=== PATIENT | female | born 1965 | race Asian ===

== ENCOUNTER 2019-01-04 04:42 | Emergency (ER) | payer OTHER ==
[~2019-01-04] VITALS: Ht 162.6 cm; Wt 72.6 kg
[2019-01-04 04:51] VITALS: BP_SYST 166
--- NOTE | 2019-01-04 04:51 | NUR ---
Patient to ER bed 3 to gown for evaluation. Side rails up.
--- NOTE | 2019-01-04 05:05 | NUR ---
ER Sing at bedside for medical evaluation.
[2019-01-04] MEDS ORDERED: NACL 0.9% 1,000 ML IV ONE (05:15)
[2019-01-04] MEDS ORDERED: MORPHINE 2 MG/ML INJ. SYRINGE IVP ONE (05:15)
[2019-01-04] MEDS ORDERED: ONDANSETRON HCL 4 MG/2 ML VIAL IVP ONE (05:15)
[2019-01-04 05:26] LABS: BASOPHILS % (AUTO) 0.4 % (0.0-2.0); EOSINOPHILS % (AUTO) 0.2 % (0.0-4.0); HEMATOCRIT 42.2 % (36-48); HEMOGLOBIN 14.7 g/dL (12.0-16.0); LYMPHOCYTES # (AUTO) 1.8 K/uL (1.0-5.5); LYMPHOCYTES % (AUTO) 19.5 % (20.5-51.5); MEAN CORPUSCULAR HEMOGLOBIN 33 pg (27-31); MEAN CORPUSCULAR HGB CONC 35 % (32-36); MEAN CORPUSCULAR VOLUME 94 fL (79.0-98.0); MONOCYTES # (AUTO) 0.5 K/uL (0.0-1.0); MONOCYTES % (AUTO) 5.1 % (1.7-9.3); NEUTROPHILS # (AUTO) 6.8 K/uL (1.8-7.7); NEUTROPHILS % (AUTO) 74.8 % (40.0-70.0); PLATELET COUNT (AUTO) 242 K/uL (130-430); RED BLOOD CELL COUNT(AUTO) 4.48 MIL/uL (4.2-6.2); RED CELL DISTRIBUTION WIDTH 12.2 % (9.0-15.0); WHITE BLOOD COUNT (AUTO) 9.1 K/uL (4.8-10.8)
[2019-01-04 05:31] LABS: CALCIUM 9.9 mg/dL (8.4-11.0); CREATININE 0.89 mg/dL (0.55-1.30); POTASSIUM 3.7 mmol/L (3.5-5.1)
[2019-01-04 05:36] LABS: ALBUMIN 4.4 g/dL (3.4-4.8); TOTAL BILIRUBIN 1.1 mg/dL (0.0-1.0)
--- NOTE | 2019-01-04 05:53 | NUR ---
patient went to radiology in stable condition.
[2019-01-04 06:22] LABS: BILIRUBIN,URINE NEGATIVE (NEGATIVE); BLOOD, URINE 3+ (NEGATIVE); CLARITY/URINE CLEAR (CLEAR); COLOR,URINE YELLOW (YELLOW); GLUCOSE,URINE NEGATIVE (NEGATIVE); KETONES,URINE NEGATIVE (NEGATIVE); LEUKOCYTE ESTERASE ,URINE NEGATIVE (NEGATIVE); NITRITE, URINE NEGATIVE (NEGATIVE); PROTEIN URINE NEGATIVE (NEGATIVE); UROBILINOGEN,URINE 0.2 (0.2-1.0)
[2019-01-04 06:29] LABS: BACTERIA,URINE FEW /HPF (None Seen); CALCIUM OXALATE CRYSTALS,UR 0-10 /HPF (None Seen); MUCUS,URINE 1+ /LPF (None Seen); WBC,URINE 0-3 /HPF (0-3)
[2019-01-04] MEDS ORDERED: KETOROLAC TROMETHAMINE 30 MG VIAL IVP ONE (07:00)
--- NOTE | 2019-01-04 07:21 | NUR ---
Patient given written and verbal discharge instructions and verbalizes understanding. ER MD discussed with patient the results and treatment provided. Patient in stable condition. ID arm band removed. IV catheter removed intact and dressing applied, no active bleeding. Rx of flomax, motrin, and norco given. Patient educated on pain management and to follow up with PMD. Pain Scale 0/10. Opportunity for questions provided and answered. Medication side effect fact sheet provided.
[2019-01-04 07:23] VITALS: BP_SYST 125
== END 2019-01-04 07:21 | disposition home or self-care (01) ==
LOC: SED 04:42
DX: N20.0 Calculus of kidney (principal); I10 Essential (primary) hypertension
CPT/HCPCS: 36415; 74176; 80053; 81000; 83690; 85025; 96374; 96375; 99284; J2270; J2405; J7030; J1885

== ENCOUNTER 2019-12-04 01:43 | Inpatient (IN) | payer BC, SELFPAY ==
[~2019-12-04] VITALS: Ht 162.6 cm; Wt 75.3 kg
[2019-12-04 01:50] VITALS: BP_SYST 141
--- NOTE | 2019-12-04 02:00 | NUR ---
Patient to ER bed 5 to gown for evaluation. Side rails up. Report given to DEAN DURHAM.
--- NOTE | 2019-12-04 02:05 | NUR ---
# 20 gauge angiocath placed to RT AC. Use of asceptic technique. Opsite placed over site. Blood return noted. Blood for lab drawn from site. Flushed with 10 cc of normal saline. No evidence of infiltration noted. Patient tolerated well.
--- NOTE | 2019-12-04 02:08 | NUR ---
Oliver brady in [facility] - 12/04/19 at 0214 by [email or web address] GLENN Linares at bedside examining patient.
[2019-12-04] MEDS ORDERED: NACL 0.9% 1,000 ML IV ONE (02:09)
--- NOTE | 2019-12-04 02:10 | NUR ---
Patient is AOx4 complaining of left flank pain non radiating worsening x 4 hours. Pain 10/10. Patient's daughter at bedside translating for patient only speaks mandarin. Patient has history of kidney stones 1 year ago with similar pain. Denies any nausea, vomiting or diarrhea. No other complaints/injuries per patient or as noted. Will continue to monitor.
--- NOTE | 2019-12-04 02:11 | NUR ---
Urine specimen collected and sent to lab for UA.
--- NOTE | 2019-12-04 02:12 | NUR ---
ER at bedside examining patient.
--- NOTE | 2019-12-04 02:13 | NUR ---
Urine HCG done, results NEGATIVE.
[2019-12-04] MEDS ORDERED: KETOROLAC TROMETHAMINE 30 MG VIAL IVP ONE (02:15)
--- NOTE | 2019-12-04 02:20 | NUR ---
Medicated per MD orders. IVF infusing with no s/s of infiltration at this time. Will cont to monitor
[2019-12-04 02:28] LABS: CREATININE 0.8 mg/dL (0.55-1.30)
[2019-12-04] MEDS ORDERED: ONDANSETRON HCL 4 MG/2 ML VIAL IVP ONE (02:30)
[2019-12-04 02:33] LABS: BASOPHILS % (AUTO) 0.5 % (0.0-2.0); EOSINOPHILS # (AUTO) 0.1 K/uL (0.0-0.4); EOSINOPHILS % (AUTO) 1.1 % (0.0-4.0); HEMATOCRIT 41.2 % (36-48); HEMOGLOBIN 13.9 g/dL (12.0-16.0); LYMPHOCYTES # (AUTO) 2.8 K/uL (1.0-5.5); LYMPHOCYTES % (AUTO) 30.6 % (20.5-51.5); MEAN CORPUSCULAR HEMOGLOBIN 32 pg (27-31); MEAN CORPUSCULAR HGB CONC 34 % (32-36); MEAN CORPUSCULAR VOLUME 94 fL (79.0-98.0); MONOCYTES # (AUTO) 0.8 K/uL (0.0-1.0); MONOCYTES % (AUTO) 8.7 % (1.7-9.3); NEUTROPHILS # (AUTO) 5.3 K/uL (1.8-7.7); NEUTROPHILS % (AUTO) 59.1 % (40.0-70.0); PLATELET COUNT (AUTO) 260 K/uL (130-430); RED BLOOD CELL COUNT(AUTO) 4.36 MIL/uL (4.2-6.2)
[2019-12-04 02:34] LABS: ALBUMIN 3.9 g/dL (3.4-4.8); TOTAL BILIRUBIN 1.3 mg/dL (0.0-1.0)
[2019-12-04 02:39] LABS: PROTHROMBIN TIME 9.6 SECS (9.5-12.5)
[2019-12-04 02:42] LABS: BILIRUBIN,URINE NEGATIVE (NEGATIVE); BLOOD, URINE 3+ (NEGATIVE); COLOR,URINE YELLOW (YELLOW); GLUCOSE,URINE NEGATIVE (NEGATIVE); KETONES,URINE NEGATIVE (NEGATIVE); LEUKOCYTE ESTERASE ,URINE 1+ (NEGATIVE); NITRITE, URINE NEGATIVE (NEGATIVE); PROTEIN URINE NEGATIVE (NEGATIVE); UROBILINOGEN,URINE 0.2 (0.2-1.0)
[2019-12-04 02:43] LABS: CLARITY/URINE SLIGHTLY HAZY (CLEAR)
[2019-12-04 02:50] LABS: BACTERIA,URINE FEW /HPF (None Seen); RBC,URINE 20-50 /HPF (0-3)
[2019-12-04] MEDS ORDERED: cefTRIAXone 1 GM in D5W 50 ML IV ONE (03:00)
[2019-12-04] MEDS ORDERED: cefTRIAXone 1 GM VIAL ONE (03:23)
--- NOTE | 2019-12-04 03:27 | NUR ---
ER at bedside discussing CT scan.
--- NOTE | 2019-12-04 03:30 | NUR ---
Patient's daughter reports she takes no medication daily
--- NOTE | 2019-12-04 03:31 | NUR ---
PAtient states she is a full code
[2019-12-04] MEDS ORDERED: TAMSULOSIN HCL 0.4 MG CAP PO ONE (03:45)
--- NOTE | 2019-12-04 04:07 | NUR ---
Patient will be admitted to care of Dr. Montoya. Admitted to Telemetry unit. Will go to room 102A. Complete and up to date summary report printed. SBAR report to be given at bedside with opportunity for questions.
--- NOTE | 2019-12-04 04:18 | NUR ---
ADMIT NOTE Received pt from ER to the floor with a diagnosis of left sided kidney obstruction. Admission process initiated. patient oriented to pain management, safety and call light-teach back done.
[2019-12-04 04:40] VITALS: BP_SYST 132
--- NOTE | 2019-12-04 06:37 | NUR ---
CLOSING NOTES Patient is resting, eyes closed. IV site patent, dressings c/d/i. Call light within reach, bed alarm off, patient demonstrates proper usage of call light. Bed at lowest position. All needs met throughout shift. Will endorse care to oncoming shift.
[2019-12-04 08:00] VITALS: BP_SYST 124
--- NOTE | 2019-12-04 08:00 | NUR ---
patient is resting; A/Ox4, Mandarin speaking. IV on left AC, #20, SL. Instructed on POC. Call light in place, bed locked at the lowest position, will continue to monitor.
[2019-12-04] MEDS ORDERED: DOCUSATE SODIUM 100 MG/10 ML UDC PO PRN (08:15)
[2019-12-04] MEDS ORDERED: ZOLPIDEM TARTRATE 5 MG TABLET PO PRN (08:15)
[2019-12-04] MEDS ORDERED: ONDANSETRON HCL 4 MG/2 ML VIAL IVP PRN (08:15)
[2019-12-04] MEDS ORDERED: ACETAMINOPHEN 500 MG TABLET PO PRN (08:15)
--- NOTE | 2019-12-04 09:38 | NUR ---
CONSULTATION PAGED REASON FOR CONSULTATION:LEFT SIDED KIDNEY OBSTRUCTION WAS CONSULT CALLED?Y PERSON WHO WAS NOTIFIED:EDY SHIN CONSULTING PHYSICIAN:EDY SHIN DIRECTOR [facility] SPECIALTY:UROLOGY DIRECTOR [facility] PHONE NUMBER:[phone] REQUESTING PHYSICIAN:KAY DOMINGUEZ
[2019-12-04] MEDS: PANTOPRAZOLE SODIUM 40 MG TAB PO SCH (09:50)
--- NOTE | 2019-12-04 10:08 | NUR ---
Dr. Scott, the urologist, is at bedside and assessing patients.
[2019-12-04 11:33] LABS: INR 0.9 (0.8-1.2); PROTHROMBIN TIME 9.5 SECS (9.5-12.5)
[2019-12-04 12:00] VITALS: BP_SYST 119
--- NOTE | 2019-12-04 12:30 | NUR ---
Patient is having lunch, no signs of distress noted.
[2019-12-04] MEDS: NACL 0.9% 1,000 ML IV SCH ×2 (13:08→23:16)
[2019-12-04 13:43] LABS: CALCIUM 9.4 mg/dL (8.4-11.0); CREATININE 0.74 mg/dL (0.55-1.30); FREE T4 (FREE THYROXINE) 1.1 ng/dl (0.8-1.5); PHOSPHORUS 4.1 mg/dL (2.7-4.5); THYROID STIMULATING HORMONE 1.82 uIu/mL (0.36-3.74)
--- NOTE | 2019-12-04 14:38 | NUR ---
Patient is resting, no signs of distress noted.
--- NOTE | 2019-12-04 16:08 | NUR ---
patient is sleeping. Declines v/s to be measured at this time.
[2019-12-04 17:08] LABS: BARBITURATE, URINE NEGATIVE (NEG <=200); BENZODIAZEPINE, URINE NEGATIVE (NEG <=150); CANNABINOID, URINE NEGATIVE (NEG <=50); COCAINE, URINE NEGATIVE (NEG <=150); METHAMPHETAMINES SCREEN,URINE NEGATIVE (NEG <=500); OPIATE, URINE NEGATIVE (NEG <=100); PHENCYCLIDINE SCREEN,URINE NEGATIVE (NEG <=25); URINE AMPHETAMINE NEGATIVE (NEG <=500); URINE METHADONE NEGATIVE (NEG <=200); URINE OXYCODONE SCREEN NEGATIVE (NEG <=100); URINE PROPOXYPHENE SCREEN NEGATIVE (NEG <=300)
[2019-12-04 17:09] LABS: UR TRICYCLIC ANTIDEPRESSANTS NEGATIVE (NEG <=300)
--- NOTE | 2019-12-04 18:20 | NUR ---
PATIENT HAS DINNER. CONTENTS OF THE IMPENDING PROCEDURE IS REVIEWED, AND SHE SIGNED THE CONSENT FOR THE PROCEDURE.
--- NOTE | 2019-12-04 19:05 | NUR ---
OPENING NOTES Received patient resting, no signs of distress observed. Received report that patient had spoken to Dr. Scott in Mandarin. Patient to have a ureteroscopy on Thursday, consent has been signed. IV site patent, dressings c/d/i, IVF running. Call light within reach, bed alarm refused as patient demonstrates proper usage of call light. Bed at lowest position. Will continue to monitor.
[2019-12-04 20:00] VITALS: BP_SYST 125
--- NOTE | 2019-12-04 21:50 | NUR ---
Patient is resting on the side, on the cell phone. Patient states no pain at this time per FLACC scale. Will continue to monitor.
[2019-12-04] MEDS: cefTRIAXone 1 GM in D5W 50 ML IV SCH (23:16)
[2019-12-05 00:55] VITALS: BP_SYST 129
--- NOTE | 2019-12-05 02:44 | NUR ---
Patient is resting, eyes closed. Call light within reach. Will continue to monitor.
--- NOTE | 2019-12-05 06:38 | NUR ---
CLOSING NOTES Patient is resting comfortably, rise and fall of chest noted. No signs of distress noted. IV site patent, dressings c/d/i. Call light within reach, bed alarm refused after proper use of call light usage demonstrated. Bed at lowest position. All needs met throughout shift. Will endorse care to oncoming shift.
[2019-12-05 08:00] VITALS: BP_SYST 146
--- NOTE | 2019-12-05 08:00 | NUR ---
PT IN BED, AWAKEN FOR VITALS, PT DENIES PAIN, NO SOB, NO FEVER. IV FLUIDS INFUSING WELL.
[2019-12-05] MEDS: PANTOPRAZOLE SODIUM 40 MG TAB PO SCH (08:54)
[2019-12-05] MEDS: TAMSULOSIN HCL 0.4 MG CAP PO SCH (08:54)
[2019-12-05] MEDS ORDERED: POTASSIUM CHLORIDE 20 MEQ TAB.PRT.SR PO PRN (09:00)
[2019-12-05 09:48] LABS: CALCIUM 9.1 mg/dL (8.4-11.0); CREATININE 0.81 mg/dL (0.55-1.30); POTASSIUM 3.9 mmol/L (3.5-5.1)
[2019-12-05 10:19] LABS: BASOPHILS % (AUTO) 0.8 % (0.0-2.0); EOSINOPHILS # (AUTO) 0.1 K/uL (0.0-0.4); EOSINOPHILS % (AUTO) 1.5 % (0.0-4.0); HEMATOCRIT 36.1 % (36-48); HEMOGLOBIN 12.2 g/dL (12.0-16.0); LYMPHOCYTES # (AUTO) 1.7 K/uL (1.0-5.5); LYMPHOCYTES % (AUTO) 36.8 % (20.5-51.5); MEAN CORPUSCULAR HEMOGLOBIN 32 pg (27-31); MEAN CORPUSCULAR HGB CONC 34 % (32-36); MEAN CORPUSCULAR VOLUME 96 fL (79.0-98.0); MONOCYTES # (AUTO) 0.4 K/uL (0.0-1.0); MONOCYTES % (AUTO) 9.1 % (1.7-9.3); NEUTROPHILS # (AUTO) 2.5 K/uL (1.8-7.7); NEUTROPHILS % (AUTO) 51.8 % (40.0-70.0); PLATELET COUNT (AUTO) 206 K/uL (130-430); RED BLOOD CELL COUNT(AUTO) 3.77 MIL/uL (4.2-6.2); RED CELL DISTRIBUTION WIDTH 11.9 % (9.0-15.0); WHITE BLOOD COUNT (AUTO) 4.7 K/uL (4.8-10.8)
--- NOTE | 2019-12-05 10:38 | NUR ---
PT IN BED, NO C/O OF PAIN, ON THE TELEPHONE. REMINDED PT THAT SHE VOID ON THE URINE COLLECTION HAT SO WE CAN STRAIN HER URINE TO CHECK IF SHE IS ABLE TO PASS THE STONE.
[2019-12-05 12:10] VITALS: BP_SYST 134
[2019-12-05] MEDS: NACL 0.9% 1,000 ML IV SCH (12:57)
--- NOTE | 2019-12-05 14:38 | NUR ---
SEEN PT AMBULATING TO BATHROOM, NO SOB, NO PAIN. WILL CONT TO MONITOR.
[2019-12-05 16:13] VITALS: BP_SYST 136
--- NOTE | 2019-12-05 19:37 | NUR ---
PT ENDORSED TO NIGHT NURSE. PT HAS BEEN STABLE, NO C/O OF PAIN, URINE STRAINED BUT NO STONES NOTED. PT WANTED TO TAKE SHOWER. ENDORSED TO NIGHT NURSE.
[2019-12-05 20:00] VITALS: BP_SYST 140
--- NOTE | 2019-12-05 20:00 | NUR ---
OPENING NOTE PT IS ALERT AND ORIENTED X4. STABLE VITAL SIGNS. NO PAIN REPORTED. SHIFT'S PRIORITY IS TO KEEP PT ON NPO AFTER 0700, DO CONSENT FOR URETERSCOPY AND LITHOTRIPSY WITH LASER, GIVE ANTIBIOTIC, AND MANAGE PAIN, BED IN LOW AND CALL LIGHT IN REACH.
[2019-12-06] MEDS: cefTRIAXone 1 GM in D5W 50 ML IV SCH (00:07)
--- NOTE | 2019-12-06 03:40 | NUR ---
MIDNIGHT NOTE PT IS SLEEPING. EVEN AND NONLABORED BREATHING. ROCEPHIN RUNNING AT 100 ML/HR. BED IN LOW AND CALL LIGHT IN REACH.
[2019-12-06] MEDS: NACL 0.9% 1,000 ML IV SCH (03:48)
--- NOTE | 2019-12-06 06:56 | NUR ---
CLOSING NOTE PT IS AWAKE AND ALERT NS RUNNING AT 75 ML/HR UNDERSTAND ABOUT SURGERY CONSENT PACKET NEED TO BE COMPLETED. ENDORSE TO THE DAY NURSE
[2019-12-06 08:00] VITALS: BP_SYST 128
--- NOTE | 2019-12-06 08:00 | NUR ---
A/OX4,AFEBRILE,VSS,DENIES PAIN OR DISCOMFORT,NEEDS ATTENDED,CALL LIGHT & PERSONAL ITEMS WITHIN PT REACH SAFETY MAINTAINED.CONTINUE TO MONITOR PT.
--- NOTE | 2019-12-06 10:00 | NUR ---
PT AMBULATORY TO BATHROOM,IVF CONTINUE INFUSING,KEEP NPO FOR ONCOMING SURGERY OF CYSTOSCOPY.
[2019-12-06 10:38] LABS: BASOPHILS % (AUTO) 0.5 % (0.0-2.0); EOSINOPHILS # (AUTO) 0.1 K/uL (0.0-0.4); EOSINOPHILS % (AUTO) 1.6 % (0.0-4.0); HEMATOCRIT 35.8 % (36-48); HEMOGLOBIN 12.1 g/dL (12.0-16.0); LYMPHOCYTES # (AUTO) 1.9 K/uL (1.0-5.5); LYMPHOCYTES % (AUTO) 37.9 % (20.5-51.5); MEAN CORPUSCULAR HEMOGLOBIN 32 pg (27-31); MEAN CORPUSCULAR HGB CONC 34 % (32-36); MEAN CORPUSCULAR VOLUME 95 fL (79.0-98.0); MONOCYTES # (AUTO) 0.5 K/uL (0.0-1.0); MONOCYTES % (AUTO) 9.3 % (1.7-9.3); NEUTROPHILS # (AUTO) 2.5 K/uL (1.8-7.7); NEUTROPHILS % (AUTO) 50.7 % (40.0-70.0); PLATELET COUNT (AUTO) 207 K/uL (130-430); RED BLOOD CELL COUNT(AUTO) 3.78 MIL/uL (4.2-6.2); RED CELL DISTRIBUTION WIDTH 11.7 % (9.0-15.0)
[2019-12-06 10:51] LABS: CREATININE 0.62 mg/dL (0.55-1.30); POTASSIUM 3.5 mmol/L (3.5-5.1)
--- NOTE | 2019-12-06 12:00 | NUR ---
PT RESTING WELL IN BED,NO SIGNIFICANT CHANGES IN STATUS,HOURLY ROUNDS MADE,SAFETY MAINTAINED.
[2019-12-06 12:06] VITALS: BP_SYST 140
--- NOTE | 2019-12-06 14:41 | NUR ---
ANESTHESIOLOGIST CAME AND INTERVIEWED PT WITH TRANSLATION IN MANDARIN,BRADYCARDIA HR 57,BP ELEVATED TO140/100 ANESTHESIOLOGIST NOTIFIED AND AWARED,PT GONE OFF THE FLOOR FOR OR VIA BED.
[2019-12-06] MEDS ORDERED: METOCLOPRAMIDE HCL 10 MG/2 ML VIAL IVP ONE (15:07)
[2019-12-06] MEDS ORDERED: SEVOFLURANE 15 MIN GAS INH ONE (15:07)
[2019-12-06] MEDS ORDERED: hydrALAZINE HCL 20 MG/ML VIAL IVP ONE (15:07)
[2019-12-06] MEDS ORDERED: ROCURONIUM BROMIDE 10 MG/ML (ZEMURON) IV ONE (15:07)
[2019-12-06] MEDS ORDERED: cefTRIAXone 1 GM VIAL IV ONE (15:07)
[2019-12-06] MEDS ORDERED: GLYCOPYRROLATE 0.2 MG/ML VIAL IJ ONE (15:07)
[2019-12-06] MEDS ORDERED: DEXAMETHASONE SOD PHOSPHATE 4 MG/ML VIAL IVP ONE (15:07)
[2019-12-06] MEDS ORDERED: PHENYLEPHRINE HCL 10 MG/ML VIAL (NEOSYNEPHRINE) IV ONE (15:07)
[2019-12-06] MEDS ORDERED: KETOROLAC TROMETHAMINE 30 MG VIAL IVP ONE (15:07)
[2019-12-06] MEDS ORDERED: PROPOFOL 200MG/ 20ML VIAL (DIPRIVAN) IV ONE (15:07)
[2019-12-06] MEDS ORDERED: NS 1000 ML IV.SOLN IV ONE (15:07)
[2019-12-06] MEDS ORDERED: ONDANSETRON HCL 4 MG/2 ML VIAL IVP ONE (15:07)
[2019-12-06] MEDS ORDERED: fentaNYL CITRATE/PF 100 MCG/2 ML AMP IVP ONE (15:07)
[2019-12-06] MEDS ORDERED: IOHEXOL 50 ML IV ONE (15:58)
[2019-12-06] MEDS ORDERED: LR 1,000 ML IV SCH (16:55)
[2019-12-06] MEDS ORDERED: KETOROLAC TROMETHAMINE 30 MG VIAL IVP PRN ×3 (17:00)
[2019-12-06] MEDS ORDERED: hydrALAZINE HCL 20 MG/ML VIAL IVP PRN (17:00)
[2019-12-06] MEDS ORDERED: METOCLOPRAMIDE HCL 10 MG/2 ML VIAL IVP PRN (17:00)
[2019-12-06] MEDS ORDERED: HYDROmorphone 1 MG INJ. 1 MG/ML AMPUL IVP PRN ×2 (17:00)
[2019-12-06] MEDS ORDERED: ONDANSETRON HCL 4 MG/2 ML VIAL IVP PRN (17:00)
[2019-12-06] MEDS: TAMSULOSIN HCL 0.4 MG CAP PO SCH (18:11)
[2019-12-06] MEDS: PANTOPRAZOLE SODIUM 40 MG TAB PO SCH (18:12)
--- NOTE | 2019-12-06 18:30 | NUR ---
pt returned to floor from surgery and placed in room 101 B,BP elevated to 162/112,c/o dizzy,assisted pt up and urinated pinkish urine in BSC,hydralazine IV given for HTN,resumed previous diet and meds,continue to monitor pt.
[2019-12-06 18:45] VITALS: BP_SYST 143
[2019-12-06 19:00] VITALS: BP_SYST 129
[2019-12-06 20:00] VITALS: BP_SYST 133
--- NOTE | 2019-12-06 20:04 | NUR ---
Opening note: Received patient from day shift nurse. Nurse ( MARVA Arnold) stated her BP pressure was elevated earlier. Rechecked BP: 133/89 P:89 Sp02: 96% (within normal range) Patient respirations even and unlabored. Denies any pain or discomfort at this time. No apparent distress noted. Safety precautions in place, bed in low position, side rails x2, call light within reach, patient able to call for assistance as needed. Will continue to monitor.
[2019-12-06] MEDS: MORPHINE 2 MG/ML INJ. SYRINGE IVP PRN (21:42)
--- NOTE | 2019-12-06 22:20 | NUR ---
Pain med: Patient reported 8/10 pain on a numeric pain scale. Administered PRN morphine 2mg/mL. Will follow up. Addendum: 12/06/19 at 2309 by [facility] shrink pit supervisor Pain relief Patient stated stated pain 10/04/ BP: 110/89 HR: 79 Sp02: 97% Administered Dwight-5 (PRN) for moderate relief. Patient stated 1/10 pain relief. Will continue to evaluate pain.
[2019-12-06] MEDS: HYDROcodone/ACETAMIN 7.5-325 MG TAB PO PRN (22:34)
[2019-12-06 23:37] VITALS: BP_SYST 129
[2019-12-07] MEDS: cefTRIAXone 1 GM in D5W 50 ML IV SCH (00:37)
[2019-12-07 00:52] VITALS: BP_SYST 113
[2019-12-07] MEDS: MORPHINE 2 MG/ML INJ. SYRINGE IVP PRN ×2 (02:25→06:21)
--- NOTE | 2019-12-07 02:49 | NUR ---
Pain relief Patient stated stated pain 01/04 BP: 120/88, HR: 80, Sp02: 97% . Administered morphine 2 mg/ml. Patient stated 2/10 pain relief. Will continue to evaluate pain.
[2019-12-07] MEDS: HYDROcodone/ACETAMIN 7.5-325 MG TAB PO PRN ×3 (04:57→09:30)
--- NOTE | 2019-12-07 05:31 | NUR ---
Closing note: Patient resting in bed in no apparent distress. Pain meds around the clock effective. Safety precautions in use. Bed in low position, side rails up x2, call light within reach. Will endorse to client about patients continued care.
[2019-12-07 05:39] VITALS: BP_SYST 115
--- NOTE | 2019-12-07 07:48 | NUR ---
Opening Note received bedside SBAR report from maintenance mechanic 2nd shift RN, patient resting in bed, respirations even and unlabored on room air, no acute distress noted, patient reports pain is controlled at this time, rounds with Dr. Laboy, per Dr. Laboy patient should be discharged today, cafeteria aide aware, educated patient on use of call light and asked to call for assistance, patient verbalized understanding, call light in reach, educated patient on use of bed alarm for patient safety, patient refusing bed alarm, bed in low and locked position.
[2019-12-07 08:00] VITALS: BP_SYST 115
[2019-12-07] MEDS: PANTOPRAZOLE SODIUM 40 MG TAB PO SCH (08:50)
[2019-12-07] MEDS: TAMSULOSIN HCL 0.4 MG CAP PO SCH (08:50)
[2019-12-07 09:06] LABS: BASOPHILS % (AUTO) 0.3 % (0.0-2.0); HEMATOCRIT 35.9 % (36-48); HEMOGLOBIN 12.1 g/dL (12.0-16.0); LYMPHOCYTES # (AUTO) 1.7 K/uL (1.0-5.5); LYMPHOCYTES % (AUTO) 25.8 % (20.5-51.5); MEAN CORPUSCULAR HEMOGLOBIN 32 pg (27-31); MEAN CORPUSCULAR HGB CONC 34 % (32-36); MEAN CORPUSCULAR VOLUME 95 fL (79.0-98.0); MONOCYTES # (AUTO) 0.5 K/uL (0.0-1.0); MONOCYTES % (AUTO) 7.6 % (1.7-9.3); NEUTROPHILS # (AUTO) 4.3 K/uL (1.8-7.7); NEUTROPHILS % (AUTO) 66.3 % (40.0-70.0); PLATELET COUNT (AUTO) 232 K/uL (130-430); RED CELL DISTRIBUTION WIDTH 11.9 % (9.0-15.0); WHITE BLOOD COUNT (AUTO) 6.5 K/uL (4.8-10.8)
[2019-12-07 09:35] LABS: CALCIUM 9.4 mg/dL (8.4-11.0); CREATININE 0.73 mg/dL (0.55-1.30); POTASSIUM 3.4 mmol/L (3.5-5.1)
--- NOTE | 2019-12-07 10:15 | NUR ---
RN Rounds patient resting in bed, patient tolerated breakfast well, no acute distress noted, patient reports pain is controlled at this time.
[2019-12-07 11:04] VITALS: BP_SYST 112
[2019-12-07] MEDS ORDERED: IBUP-1969 PO (11:07)
[2019-12-07] MEDS ORDERED: CIPR-211 PO (11:08)
[2019-12-07] MEDS ORDERED: HYDR-4272 PO (11:09)
--- NOTE | 2019-12-07 11:44 | NUR ---
Discharge used Faroese Mandarin technical sales consultant Shauna #[phone] to translate, provided patient with discharge packet and instructions, informed patient to make appointment to see Dr. Scott within one week, patient verbalized understanding, provided patient with written prescriptions, IV catheter removed, catheter intact, no bleeding, steady gait noted, respirations even and unlabored on room air, no acute distress noted, all belongings sent with patient patient taken to parking lot via wheelchair, patient driven by jose elias Gallo for discharge home. Addendum: 12/07/19 at 1158 by Chula Aponte RN also educated patient jose elias Gallo on discharge packet and instructions and medications prescribed for discharge, patients jose elias Gallo verbalized understanding.
== END 2019-12-07 11:58 | disposition home or self-care (01) | DRG 660 ==
LOC: SED 01:43 → STU 03:43 → SMU 21:33
PROVIDERS: ADMIT Family Medicine; ATTEND Family Medicine
PROC: 0TF78ZZ Fragmentation in Left Ureter, Via Natural or Artificial Opening Endoscopic (ICD-10-PCS; 2019-12-06)
PROC: BT1F1ZZ Fluoroscopy of Left Kidney, Ureter and Bladder using Low Osmolar Contrast (ICD-10-PCS; 2019-12-06)
PROC: 0T778DZ Dilation of Left Ureter with Intraluminal Device, Via Natural or Artificial Opening Endoscopic (ICD-10-PCS; principal; 2019-12-06 15:07)
DX: N13.6 Pyonephrosis (principal); R17 Unspecified jaundice; E86.0 Dehydration; I10 Essential (primary) hypertension; Z87.442 Personal history of urinary calculi; Z03.818 Encounter for observation for suspected exposure to other biological agents ruled out
CPT/HCPCS: 36415; 71045; 76000; 80048; 80053; 80061; 80307; 81000-TC; 82150-TC; 83036; 83605; 83690-TC; 83735-TC; 83880; 84100-TC; 84439; 84443-TC; 84484; 85025; 85610-TC; 85730-TC; 87040-TC; 87081; 87086; 93005; 94760; 96361; 96365; 96375; 99285; C1758; C1769; C2625; J0360; J0696; J1100; J1170; J1885; J2270; J2370; J2405; J2704; J2765; J3010; J3490; J7030; J7060; Q9967; U0003-CS

== ENCOUNTER 2021-04-23 13:30 | Emergency (ER) | payer BC, SELFPAY ==
[~2021-04-23] VITALS: Ht 162.6 cm; Wt 72.6 kg
[~2021-04-23 13:30] MED LIST: CIPR500T5 PO; HYDR-4272 PO; IBUP-1969 PO
[2021-04-23 13:51] VITALS: BP_SYST 107
--- NOTE | 2021-04-23 16:50 | NUR ---
First contact made with patient. Minimal report received on patient. Per patient's dtr, patient has had a "cold" for several days, but it "got worse" this morning. PMH HTN reported. Patient's dtr also reported low BP this morning, along with weakness and redness all over body with no allergic reaction reported. Awaiting MD evaluation. Will continue to monitor.
[2021-04-23 17:25] LABS: BASOPHILS % (AUTO) 0.4 % (0.0-2.0); EOSINOPHILS % (AUTO) 0.2 % (0.0-4.0); HEMATOCRIT 38.9 % (36-48); HEMOGLOBIN 13.1 g/dL (12.0-16.0); LYMPHOCYTES # (AUTO) 1.1 K/uL (1.0-5.5); LYMPHOCYTES % (AUTO) 9.5 % (20.5-51.5); MEAN CORPUSCULAR HEMOGLOBIN 31 pg (27-31); MEAN CORPUSCULAR HGB CONC 34 % (32-36); MEAN CORPUSCULAR VOLUME 92 fL (79.0-98.0); MONOCYTES # (AUTO) 0.5 K/uL (0.0-1.0); MONOCYTES % (AUTO) 4.8 % (1.7-9.3); NEUTROPHILS # (AUTO) 9.4 K/uL (1.8-7.7); NEUTROPHILS % (AUTO) 85.1 % (40.0-70.0); PLATELET COUNT (AUTO) 212 K/uL (130-430); RED BLOOD CELL COUNT(AUTO) 4.22 MIL/uL (4.2-6.2); RED CELL DISTRIBUTION WIDTH 11.8 % (9.0-15.0); WHITE BLOOD COUNT (AUTO) 11.1 K/uL (4.8-10.8)
--- NOTE | 2021-04-23 17:25 | NUR ---
Patient transported to CT scan via wheelchair
[2021-04-23 17:37] LABS: CALCIUM 8.8 mg/dL (8.4-11.0); CREATININE 0.75 mg/dL (0.55-1.30); POTASSIUM 4.2 mmol/L (3.5-5.1)
[2021-04-23 17:43] LABS: ALBUMIN 3.8 g/dL (3.4-4.8); TOTAL BILIRUBIN 0.5 mg/dL (0.0-1.0)
[2021-04-23 17:45] LABS: C-REACTIVE PROTEIN QUANT 0.2 mg/dL (0-0.5)
[2021-04-23 18:11] LABS: ERYTHROCYTE SEDIMENTATION RATE 14 MM/HR (0-20)
[2021-04-23] MEDS ORDERED: IBUP-1969 PO (18:57)
[2021-04-23] MEDS ORDERED: cefTRIAXone 1 GM in LIDOCAINE 1%, 20 ML MDV 2.1 ML IM ONE (19:00)
--- NOTE | 2021-04-23 19:25 | NUR ---
ER at bedside to explain results and treatments.
[2021-04-23 19:48] VITALS: BP_SYST 107
--- NOTE | 2021-04-23 19:48 | NUR ---
Patient given written and verbal discharge instructions and verbalizes understanding. ER MD discussed with patient the results and treatment provided. Patient in stable condition. ID arm band removed. Rx of Ibuprofen given. Patient educated on pain management and to follow up with PMD. Pain Scale 1/10. Opportunity for questions provided and answered. Medication side effect fact sheet provided.
[2021-04-24] MEDS ORDERED: PRED20TA PO (18:15)
[2021-04-24] MEDS ORDERED: EPIN0.3P3 IM (18:15)
[2021-04-24] MEDS ORDERED: DIPH25CA83 PO (18:15)
== END 2021-04-23 19:48 | disposition home or self-care (01) ==
LOC: SED 13:30
DX: R51.9 Headache, unspecified (principal); I10 Essential (primary) hypertension; Z79.899 Other long term (current) drug therapy
CPT/HCPCS: 36415; 70450; 76376; 80053; 81025; 85025; 85651; 86140; 93005; 96372; 99285; J0696; J2001

== ENCOUNTER 2021-04-24 13:46 | Emergency (ER) | payer BC, SELFPAY ==
[~2021-04-24] VITALS: Ht 162.6 cm; Wt 72.6 kg
[2021-04-24 14:10] VITALS: BP_SYST 122
--- NOTE | 2021-04-24 14:15 | NUR ---
pt. bib daughter with concerns of JEONG comes and goes accompanied by flushed face and body rash/redness, rates JEONG 3/10 states has had 3 to 4 episodes since last night lasting around 1 hour.
--- NOTE | 2021-04-24 14:30 | NUR ---
ER in triage examining patient.
[2021-04-24 15:24] LABS: BASOPHILS % (AUTO) 0.4 % (0.0-2.0); EOSINOPHILS % (AUTO) 0.8 % (0.0-4.0); HEMATOCRIT 38.7 % (36-48); HEMOGLOBIN 13.3 g/dL (12.0-16.0); LYMPHOCYTES # (AUTO) 1.6 K/uL (1.0-5.5); MEAN CORPUSCULAR HEMOGLOBIN 31 pg (27-31); MEAN CORPUSCULAR HGB CONC 34 % (32-36); MEAN CORPUSCULAR VOLUME 91 fL (79.0-98.0); MONOCYTES # (AUTO) 0.3 K/uL (0.0-1.0); MONOCYTES % (AUTO) 6.9 % (1.7-9.3); NEUTROPHILS # (AUTO) 2.1 K/uL (1.8-7.7); NEUTROPHILS % (AUTO) 51.9 % (40.0-70.0); PLATELET COUNT (AUTO) 215 K/uL (130-430); RED BLOOD CELL COUNT(AUTO) 4.27 MIL/uL (4.2-6.2); RED CELL DISTRIBUTION WIDTH 11.9 % (9.0-15.0)
--- NOTE | 2021-04-24 15:25 | NUR ---
pt. taken from [facility] to triage for covid and strep swab, pt. currently has no JEONG and rash/facial redness gone, pt. does states feels heart beat fast when JEONG starts
[2021-04-24 15:29] LABS: CALCIUM 8.8 mg/dL (8.4-11.0); CREATININE 0.69 mg/dL (0.55-1.30); POTASSIUM 3.7 mmol/L (3.5-5.1)
[2021-04-24 15:38] LABS: TOTAL BILIRUBIN 0.7 mg/dL (0.0-1.0)
[2021-04-24 15:57] LABS: C-REACTIVE PROTEIN QUANT 2.5 mg/dL (0-0.5)
--- NOTE | 2021-04-24 18:10 | NUR ---
BROUGHT INTO [facility] CHAIR BY DR MANUEL.
[2021-04-24] MEDS ORDERED: DIPH25CA83 PO (18:15)
[2021-04-24] MEDS ORDERED: PRED20TA PO (18:15)
[2021-04-24] MEDS ORDERED: EPIN0.3P3 IM (18:15)
--- NOTE | 2021-04-24 18:34 | NUR ---
Patient given written and verbal discharge instructions and verbalizes understanding. ER MD discussed with patient the results and treatment provided. Patient in stable condition. Rx of BENADRYL, EPI,PREDNISONE given. Patient educated on pain management and to follow up with PMD. Pain Scale . Opportunity for questions provided and answered. Medication side effect fact sheet provided.
[2021-04-24 18:35] VITALS: BP_SYST 113
== END 2021-04-24 18:34 | disposition home or self-care (01) ==
LOC: SED 13:46
DX: L23.9 Allergic contact dermatitis, unspecified cause (principal); I10 Essential (primary) hypertension; Z20.822 Contact with and (suspected) exposure to COVID-19
CPT/HCPCS: 36415; 71045; 80053; 85025; 86060; 86140; 86403; 87081; 99284

== ENCOUNTER 2022-06-20 07:10 | Emergency (ER) | payer BC ==
[~2022-06-20] VITALS: Ht 165.1 cm; Wt 72.6 kg
[~2022-06-20 07:10] MED LIST changes: +DIPH25CA83 PO; +EPIN0.3P3 IM; +PRED20TA PO
[2022-06-20 07:33] VITALS: BP_SYST 154
[2022-06-20] MEDS ORDERED: KETOROLAC TROMETHAMINE 30 MG VIAL IVP ONE (07:45)
[2022-06-20] MEDS ORDERED: NACL 0.9% 1,000 ML IV ONE (07:45)
[2022-06-20 08:23] LABS: BASOPHILS % (AUTO) 0.2 % (0.0-2.0); EOSINOPHILS % (AUTO) 0.2 % (0.0-4.0); HEMATOCRIT 38.3 % (36-48); HEMOGLOBIN 13.2 g/dL (12.0-16.0); LYMPHOCYTES # (AUTO) 1.4 K/uL (1.0-5.5); LYMPHOCYTES % (AUTO) 16.5 % (20.5-51.5); MEAN CORPUSCULAR HEMOGLOBIN 32 pg (27-31); MEAN CORPUSCULAR HGB CONC 35 % (32-36); MEAN CORPUSCULAR VOLUME 92 fL (79.0-98.0); MONOCYTES # (AUTO) 0.4 K/uL (0.0-1.0); MONOCYTES % (AUTO) 4.3 % (1.7-9.3); NEUTROPHILS # (AUTO) 6.8 K/uL (1.8-7.7); NEUTROPHILS % (AUTO) 78.8 % (40.0-70.0); PLATELET COUNT (AUTO) 221 K/uL (130-430); RED BLOOD CELL COUNT(AUTO) 4.17 MIL/uL (4.2-6.2); RED CELL DISTRIBUTION WIDTH 12.1 % (9.0-15.0); WHITE BLOOD COUNT (AUTO) 8.7 K/uL (4.8-10.8)
--- NOTE | 2022-06-20 08:30 | NUR ---
PT CAME IN TO ED ACCOMPANIED BY DAUGHTER, CHIEF COMPLAINT OF LEFT FLANK PAIN STARTED TODAY. PAIN GRADIANT 12/04. PT AOX4. PT HAS HX OF KIDNEY STONES AND HTN. PT IN BED AT LOWEST POSITION AND SIDE RAILS UP.
--- NOTE | 2022-06-20 08:32 | NUR ---
ER Dr. PONCE at bedside examining patient.
[2022-06-20 08:38] LABS: CALCIUM 9.2 mg/dL (8.4-11.0); CREATININE 0.94 mg/dL (0.55-1.30)
--- NOTE | 2022-06-20 08:40 | NUR ---
# 20 gauge angiocath placed to . Use of asceptic technique. Opsite placed over site. Blood return noted. Blood for lab drawn from site. Flushed with 10 cc of normal saline. No evidence of infiltration noted. Patient tolerated well.
[2022-06-20 08:42] LABS: ALBUMIN 3.9 g/dL (3.4-4.8); TOTAL BILIRUBIN 0.7 mg/dL (0.0-1.0)
--- NOTE | 2022-06-20 09:30 | NUR ---
URINE COLLECTED AND TAKEN TO LAB
[2022-06-20 09:37] LABS: BILIRUBIN,URINE NEGATIVE (NEGATIVE); BLOOD, URINE 3+ (NEGATIVE); CLARITY/URINE CLOUDY (CLEAR); COLOR,URINE YELLOW (YELLOW); GLUCOSE,URINE NEGATIVE (NEGATIVE); KETONES,URINE NEGATIVE (NEGATIVE); LEUKOCYTE ESTERASE ,URINE NEGATIVE (NEGATIVE); NITRITE, URINE NEGATIVE (NEGATIVE); PH,URINE 7.5 (5.0-8.0); PROTEIN URINE NEGATIVE (NEGATIVE); UROBILINOGEN,URINE 0.2 (0.2-1.0)
[2022-06-20 10:11] LABS: WBC,URINE NONE SEEN /HPF (0-3)
[2022-06-20 10:12] LABS: BACTERIA,URINE None Seen /HPF (None Seen)
[2022-06-20 10:13] LABS: URINE AMORPHOUS PHOSPHATES 4+ /HPF (None Seen)
[2022-06-20] MEDS ORDERED: TRAM50TA2 PO (10:46)
[2022-06-20] MEDS ORDERED: NAPR-688 PO (10:46)
--- NOTE | 2022-06-20 10:54 | NUR ---
Patient given written and verbal discharge instructions and verbalizes understanding. ER MD discussed with patient the results and treatment provided. Patient in stable condition. ID arm band removed. IV catheter removed intact and dressing applied, no active bleeding. Rx of NAPROXEN, TRAMADOL given. Patient educated on pain management and to follow up with PMD. Pain Scale 2/10. Opportunity for questions provided and answered. Medication side effect fact sheet provided.
[2022-06-20 11:22] VITALS: BP_SYST 125
== END 2022-06-20 10:55 | disposition home or self-care (01) ==
LOC: SED 07:10
DX: N23 Unspecified renal colic (principal); R11.2 Nausea with vomiting, unspecified; I10 Essential (primary) hypertension; Z79.899 Other long term (current) drug therapy
CPT/HCPCS: 99285; 74176; 96374; 96361; 80053; 81000; 85025; 36415; 76376; J1885; J7030